=== PATIENT | female | born 2000 | race African-American/Black ===

== ENCOUNTER 2021-08-28 08:20 | Emergency (ER) | payer OTHER ==
[~2021-08-28] VITALS: Ht 167.6 cm; Wt 84.4 kg
[2021-08-28] MEDS ORDERED: MULTTAB20 PO (08:29)
[2021-08-28 09:10] LABS: BASO % 0.4 % (0.0-1.0); EOS # 0.1 10^3/uL (0.0-0.5); HEMATOCRIT 39.4 % (36.0-47.0); HEMOGLOBIN 12.8 g/dl (12.0-15.5); LYMPH % 21.8 % (24.0-44.0); MEAN CORPUSCULAR HEMOGLOBIN 27.5 pg (27.0-33.0); MEAN CORPUSCULAR HGB CONC 32.5 g/dl (32.0-36.5); MEAN CORPUSCULAR VOLUME 84.5 fl (80.0-96.0); MONO # 0.8 10^3/uL (0.0-0.8); MONO % 9.2 % (2.0-8.0); NEUTROPHILS # 6.1 10^3/uL (1.5-8.5); NEUTROPHILS % 67.2 % (36.0-66.0); PLATELET COUNT, AUTOMATED 236 10^3/uL (150-450); RED BLOOD COUNT 4.66 10^6/uL (4.00-5.40); WHITE BLOOD COUNT 9.1 10^3/uL (4.0-10.0)
[2021-08-28] MEDS ORDERED: ACETAMINOPHEN 325 MG TAB PO ONE (10:00)
[2021-08-28 11:57] VITALS: BP 104/60
[2021-08-28 13:00] LABS: GC DNA AMPLIFICATION NEGATIVE (NEGATIVE)
== END 2021-08-28 11:58 | disposition home or self-care (01) ==
LOC: M ED 08:20
DX: O99.611 Diseases of the digestive system complicating pregnancy, first trimester (principal); R10.2 Pelvic and perineal pain; Z88.1 Allergy status to other antibiotic agents; Z3A.09 9 weeks gestation of pregnancy

== ENCOUNTER 2021-08-29 06:36 | Emergency (ER) | payer OTHER ==
[~2021-08-29] VITALS: Ht 167.6 cm; Wt 83.3 kg
[~2021-08-29 06:36] MED LIST: MULTTAB20 PO
[2021-08-29 09:18] LABS: BASO # 0.1 10^3/uL (0.0-0.2); BASO % 0.6 % (0.0-1.0); EOS # 0.1 10^3/uL (0.0-0.5); EOS % 1.2 % (0.0-3.0); HEMATOCRIT 37.9 % (36.0-47.0); HEMOGLOBIN 12.2 g/dl (12.0-15.5); LYMPH # 1.6 10^3/uL (1.5-5.0); LYMPH % 19.3 % (24.0-44.0); MEAN CORPUSCULAR HEMOGLOBIN 27.9 pg (27.0-33.0); MEAN CORPUSCULAR HGB CONC 32.2 g/dl (32.0-36.5); MEAN CORPUSCULAR VOLUME 86.5 fl (80.0-96.0); MONO # 0.8 10^3/uL (0.0-0.8); MONO % 9.3 % (2.0-8.0); NEUTROPHILS # 5.8 10^3/uL (1.5-8.5); PLATELET COUNT, AUTOMATED 231 10^3/uL (150-450); RED BLOOD COUNT 4.38 10^6/uL (4.00-5.40); WHITE BLOOD COUNT 8.4 10^3/uL (4.0-10.0)
[2021-08-29 09:42] VITALS: BP 103/58
== END 2021-08-29 11:35 | disposition home or self-care (01) ==
LOC: M ED 06:36
DX: O03.89 Complete or unspecified spontaneous abortion with other complications (principal); N93.9 Abnormal uterine and vaginal bleeding, unspecified; Z88.1 Allergy status to other antibiotic agents

== ENCOUNTER 2021-09-26 12:08 | Emergency (ER) | payer OTHER ==
[~2021-09-26] VITALS: Ht 165.1 cm; Wt 83.6 kg
[2021-09-26 15:01] LABS: BASO % 0.2 % (0.0-1.0); EOS # 0.1 10^3/uL (0.0-0.5); EOS % 1.1 % (0.0-3.0); HEMATOCRIT 42.6 % (36.0-47.0); HEMOGLOBIN 13.3 g/dl (12.0-15.5); LYMPH # 2.1 10^3/uL (1.5-5.0); LYMPH % 21.8 % (24.0-44.0); MEAN CORPUSCULAR HEMOGLOBIN 28.1 pg (27.0-33.0); MEAN CORPUSCULAR HGB CONC 31.2 g/dl (32.0-36.5); MEAN CORPUSCULAR VOLUME 89.9 fl (80.0-96.0); MONO # 0.8 10^3/uL (0.0-0.8); MONO % 7.7 % (2.0-8.0); NEUTROPHILS # 6.7 10^3/uL (1.5-8.5); NEUTROPHILS % 68.9 % (36.0-66.0); PLATELET COUNT, AUTOMATED 287 10^3/uL (150-450); RED BLOOD COUNT 4.74 10^6/uL (4.00-5.40); WHITE BLOOD COUNT 9.7 10^3/uL (4.0-10.0)
[2021-09-26 15:26] LABS: ALBUMIN 3.6 GM/DL (3.2-5.2); ALT/SGPT 12 U/L (12-78); BILIRUBIN,DIRECT 0.1 MG/DL (0.0-0.2); BILIRUBIN,TOTAL 0.3 MG/DL (0.2-1.0); BLOOD UREA NITROGEN 9 MG/DL (7-18); CALCIUM LEVEL 9.9 MG/DL (8.5-10.1); CARBON DIOXIDE LEVEL 29 MEQ/L (21-32); CHLORIDE LEVEL 108 MEQ/L (98-107); GLOMERULAR FILTRATION RATE > 60.0 (>60); GLUCOSE, FASTING 83 MG/DL (70-100); HCG, SERUM QUANTITATIVE 10 MIU/ML; LIPASE 86 U/L (73-393); SODIUM LEVEL 142 MEQ/L (136-145); TOTAL PROTEIN 7.6 GM/DL (6.4-8.2)
[2021-09-26] MEDS ORDERED: NS 1,000 ML IV ONE (15:55)
[2021-09-26] MEDS ORDERED: KETOROLAC 30 MG/ML 1ML VIAL IV ONE (15:55)
[2021-09-26] MEDS ORDERED: CEPHALEXIN 500 MG CAP PO ONE (17:55)
[2021-09-26] MEDS ORDERED: CEPH500C PO (17:58)
[2021-09-26 18:14] VITALS: BP 110/77
== END 2021-09-26 18:20 | disposition home or self-care (01) ==
LOC: M ED 12:08
DX: N39.0 Urinary tract infection, site not specified (principal); Z88.1 Allergy status to other antibiotic agents
CPT/HCPCS: 76775; 80048; 80076; 81001; 83690; 84702; 85025; 87088; 87186; 96361; 96374; 99284; J1885

== ENCOUNTER 2022-02-13 14:00 | Inpatient (IN) | payer OTHER ==
[~2022-02-13] VITALS: Ht 167.6 cm; Wt 80.9 kg
[~2022-02-13 14:00] MED LIST changes: +CEPH500C PO
[2022-02-13] MEDS ORDERED: PROZ20CA11 PO (15:07)
[2022-02-13 15:19] LABS: HEMATOCRIT 41.4 % (36.0-47.0); HEMOGLOBIN 12.9 g/dl (12.0-15.5); MEAN CORPUSCULAR HEMOGLOBIN 27.3 pg (27.0-33.0); MEAN CORPUSCULAR HGB CONC 31.2 g/dl (32.0-36.5); MEAN CORPUSCULAR VOLUME 87.5 fl (80.0-96.0); PLATELET COUNT, AUTOMATED 217 10^3/uL (150-450); RED BLOOD COUNT 4.73 10^6/uL (4.00-5.40); WHITE BLOOD COUNT 5.4 10^3/uL (4.0-10.0)
[2022-02-13 15:46] LABS: HCG, SERUM QUALITATIVE NEGATIVE (NEGATIVE)
[2022-02-13 15:55] LABS: AMPHETAMINES LEVEL URINE NEGATIVE (NEGATIVE); BARBITURATES URINE NEGATIVE (NEGATIVE); BENZODIAZEPINES URINE NEGATIVE (NEGATIVE); CANNABINOIDS URINE NEGATIVE (NEGATIVE); COCAINE METABOLITE URINE NEGATIVE (NEGATIVE); METHADONE URINE NEGATIVE (NEGATIVE); OPIATES URINE NEGATIVE (NEGATIVE); PHENCYCLIDINE URINE NEGATIVE (NEGATIVE)
[2022-02-13] MEDS ORDERED: VITA100093 PO (16:01)
[2022-02-13] MEDS ORDERED: FLUO10CA18 PO (16:01)
[2022-02-13 16:04] LABS: RSV AMPLIFICATION NEGATIVE (NEGATIVE)
[2022-02-13 16:10] LABS: ACETAMINOPHEN LEVEL < 2.0 UG/ML (10.0-30.0); ALBUMIN 3.4 GM/DL (3.2-5.2); ALT/SGPT 13 U/L (12-78); BILIRUBIN,DIRECT < 0.1 MG/DL (0.0-0.2); BILIRUBIN,TOTAL 0.2 MG/DL (0.2-1.0); BLOOD UREA NITROGEN 12 MG/DL (7-18); CALCIUM LEVEL 8.4 MG/DL (8.5-10.1); CARBON DIOXIDE LEVEL 26 MEQ/L (21-32); CHLORIDE LEVEL 108 MEQ/L (98-107); ETHYL ALCOHOL (ETHANOL) < 0.003 % (0.000-0.010); GLOMERULAR FILTRATION RATE > 60.0 (>60); GLUCOSE, FASTING 98 MG/DL (70-100); POTASSIUM SERUM 4.1 MEQ/L (3.5-5.1); SALICYLATE LEVEL < 1.7 MG/DL (5.0-30.0); SODIUM LEVEL 139 MEQ/L (136-145); THYROID STIMULATING HORMONE 0.698 uIU/ML (0.358-3.740); TOTAL PROTEIN 6.8 GM/DL (6.4-8.2)
[2022-02-13] MEDS ORDERED: HOME MED LIST COMPLETE! XX SCH (16:25)
[2022-02-13] MEDS ORDERED: FLUoxetine 20MG CAP PO SCH (21:00)
[2022-02-13] MEDS ORDERED: MAALOX 30 ML SUSP *UDC PO PRN (21:45)
[2022-02-13] MEDS ORDERED: MOM 30ML SUSPENSION UDC PO PRN (21:45)
[2022-02-14] VITALS: BP 133/69
[2022-02-14] MEDS: ACETAMINOPHEN TAB 650MG DOSE (2X325MG) PO PRN (00:26)
[2022-02-14] MEDS: FLUoxetine 20MG CAP PO SCH ×2 (00:26→09:34)
[2022-02-14] MEDS: VITAMIN D 1,000 INTERNATIONAL UNITS TABLET PO SCH (09:34)
[2022-02-14] MEDS: FLUoxetine 10 MG CAP PO SCH (21:02)
[2022-02-15 06:20] VITALS: BP 157/75
[2022-02-15] MEDS: FLUoxetine 20MG CAP PO SCH (09:43)
[2022-02-15] MEDS: VITAMIN D 1,000 INTERNATIONAL UNITS TABLET PO SCH (09:43)
[2022-02-15 18:09] VITALS: BP 124/72
[2022-02-15] MEDS: FLUoxetine 10 MG CAP PO SCH (20:17)
[2022-02-15] MEDS: traZODone 50 MG TAB PO PRN (20:17)
[2022-02-16 06:15] VITALS: BP 108/59
[2022-02-16] MEDS: FLUoxetine 20MG CAP PO SCH (08:24)
[2022-02-16] MEDS: VITAMIN D 1,000 INTERNATIONAL UNITS TABLET PO SCH (08:24)
[2022-02-16] MEDS: ACETAMINOPHEN TAB 650MG DOSE (2X325MG) PO PRN (08:25)
[2022-02-16] MEDS ORDERED: IBUPROFEN 400MG TAB PO ONE (09:45)
[2022-02-16 17:59] VITALS: BP 116/59
[2022-02-16] MEDS: FLUoxetine 10 MG CAP PO SCH (20:50)
[2022-02-16] MEDS: traZODone 50 MG TAB PO PRN (20:50)
[2022-02-17 07:00] VITALS: BP 101/53
[2022-02-17] MEDS: FLUoxetine 20MG CAP PO SCH (08:18)
[2022-02-17] MEDS: VITAMIN D 1,000 INTERNATIONAL UNITS TABLET PO SCH (08:18)
[2022-02-17] MEDS: ACETAMINOPHEN TAB 650MG DOSE (2X325MG) PO PRN (11:04)
[2022-02-17 18:00] VITALS: BP 129/74
[2022-02-17] MEDS: FLUoxetine 10 MG CAP PO SCH (19:58)
[2022-02-17] MEDS: traZODone 50 MG TAB PO PRN (19:58)
[2022-02-18 06:07] VITALS: BP 100/57
[2022-02-18] MEDS: VITAMIN D 1,000 INTERNATIONAL UNITS TABLET PO SCH (08:48)
[2022-02-18] MEDS: FLUoxetine 20MG CAP PO SCH (08:48)
[2022-02-18 18:19] VITALS: BP 105/55
[2022-02-18] MEDS: FLUoxetine 10 MG CAP PO SCH (20:36)
[2022-02-18] MEDS: traZODone 50 MG TAB PO PRN (20:36)
[2022-02-19 06:10] VITALS: BP 105/47
[2022-02-19] MEDS ORDERED: FLUO20CA22 PO (08:25)
[2022-02-19] MEDS ORDERED: FLUO10CA18 PO (08:25)
[2022-02-19] MEDS ORDERED: TRAZ-252 PO (08:25)
[2022-02-19] MEDS: VITAMIN D 1,000 INTERNATIONAL UNITS TABLET PO SCH (09:50)
[2022-02-19] MEDS: FLUoxetine 20MG CAP PO SCH (09:50)
== END 2022-02-19 12:09 | disposition home or self-care (01) | DRG 881 ==
LOC: M ED 14:00 → M ED INP 21:45 → M PSY 23:58
PROVIDERS: ADMIT Psychiatry & Neurology Psychiatry; ATTEND Psychiatry & Neurology Psychiatry
DX: F32.A Depression, unspecified (principal); R45.851 Suicidal ideations; F32.9 Major depressive disorder, single episode, unspecified; F43.20 Adjustment disorder, unspecified; Z88.8 Allergy status to other drugs, medicaments and biological substances

== ENCOUNTER → 2024-12-17 | Outpatient (CLI) | payer OTHER, SELFPAY ==
[~2024-12-17] MED LIST changes: +FLUO-290 PO; +FLUO-365 PO; +PROZ20CA12 PO; +TRAZ-252 PO; +VITA100093 PO
[2024-12-17 17:26] LABS: PLATELET COUNT, AUTOMATED 254 10^3/uL (150-450)
[2024-12-17 17:31] LABS: LDH LACTATE DEHYDROGENASE 109 U/L (120-246)
[2024-12-17 17:32] LABS: ALT/SGPT < 9 U/L (7.0-40); AST/SGOT 13 U/L (<34); CREATININE FOR GFR 0.70 MG/DL (0.55-1.30); GLOMERULAR FILTRATION RATE > 90.0 (>60)
[2024-12-17 17:42] LABS: TOTAL PROTEIN,RANDOM URINE 30.6 MG/DL (0.0-14.0)
[2024-12-17 18:06] LABS: HIV 1&2 SCREEN NEGATIVE (NEGATIVE)
[2024-12-17 18:14] LABS: HEPATITIS C VIRUS ABY INDEX < 0.02 INDEX (<0.8)
[2024-12-17 19:06] LABS: Trichomonas vaginalis (AMP) NOT DETECTED (NEGATIVE)
[2024-12-17 19:30] LABS: GC DNA AMPLIFICATION NEGATIVE (NEGATIVE)
== END ==
LOC: M PLALAB 15:19
PROVIDERS: ATTEND Advanced Practice Midwife
DX: O99.342 Other mental disorders complicating pregnancy, second trimester (principal); Z3A.00 Weeks of gestation of pregnancy not specified; Z11.59 Encounter for screening for other viral diseases; Z11.3 Encounter for screening for infections with a predominantly sexual mode of transmission; Z72.89 Other problems related to lifestyle; Z79.899 Other long term (current) drug therapy

== ENCOUNTER → 2024-12-22 | Outpatient (CLI) | payer OTHER | LOC: M PLALAB 14:27 | PROVIDERS: ATTEND Advanced Practice Midwife | DX: O99.212 Obesity complicating pregnancy, second trimester (principal); Z3A.00 Weeks of gestation of pregnancy not specified ==

== ENCOUNTER → 2025-01-15 | Outpatient (REF) | payer OTHER | LOC: M SFHCWAGY 13:19 | PROVIDERS: ATTEND Obstetrics & Gynecology | DX: Z34.80 Encounter for supervision of other normal pregnancy, unspecified trimester (principal) ==

== ENCOUNTER → 2025-01-25 | Outpatient (CLI) | payer OTHER | LOC: M RAD 12:06 | PROVIDERS: ATTEND Advanced Practice Midwife | DX: O99.342 Other mental disorders complicating pregnancy, second trimester (principal) ==

== ENCOUNTER → 2025-02-15 | Outpatient (CLI) | payer OTHER ==
[2025-02-15 15:17] LABS: PLATELET COUNT, AUTOMATED 243 10^3/uL (150-450)
[2025-02-15 15:22] LABS: GLUCOSE CHALLENGE TEST 1 HOUR 124 MG/DL (LESS THAN 140)
[2025-02-15 15:52] LABS: HIV 1&2 SCREEN NEGATIVE (NEGATIVE)
[2025-02-15 16:00] LABS: HEPATITIS C VIRUS ABY INDEX 0.02 INDEX (<0.8)
[2025-02-15 16:21] LABS: Trichomonas vaginalis (AMP) NOT DETECTED (NEGATIVE)
[2025-02-15 16:45] LABS: GC DNA AMPLIFICATION NEGATIVE (NEGATIVE)
== END ==
LOC: M PLALAB 11:17
PROVIDERS: ATTEND Student in an Organized Health Care Education/Training Program
DX: Z34.80 Encounter for supervision of other normal pregnancy, unspecified trimester (principal); Z11.3 Encounter for screening for infections with a predominantly sexual mode of transmission

== ENCOUNTER → 2025-02-15 | Outpatient (REF) | payer OTHER | LOC: M PLALAB 09:19 | PROVIDERS: ATTEND Student in an Organized Health Care Education/Training Program | DX: Z53.9 Procedure and treatment not carried out, unspecified reason (principal) ==

== ENCOUNTER → 2025-04-06 | Outpatient (CLI) | payer OTHER ==
[~2025-04-06] MED LIST changes: -PROZ20CA12 PO; +PROZ20CA25 PO
== END ==
LOC: M WHC 13:59
PROVIDERS: ATTEND Advanced Practice Midwife
DX: O99.213 Obesity complicating pregnancy, third trimester (principal); Z3A.29 29 weeks gestation of pregnancy